=== PATIENT | male | born 1975 | race Caucasian/White ===

== ENCOUNTER 2019-11-01 12:00 | Day surgery (SDC) | payer OTHER ==
[2019-10-31 13:15] VITALS: BMI 27.3
[2019-11-01] MEDS ORDERED: DEXAMETHASONE SOD PHOSPHATE/PF 10 MG/ML SDV ONE ×2 (12:58→16:28)
[2019-11-01] MEDS ORDERED: LIDOCAINE HCL 1%, 10 MG/ML (20ML VIAL) INF ONE (16:45)
[2019-11-01] MEDS ORDERED: DEXAMETHASONE SOD PHOSPHATE 4 MG/1 ML VIAL IVPUSH ONE ×2 (16:46)
[2019-11-01] MEDS ORDERED: IOHEXOL 180 MG/1 ML ML IJ ONE (16:46)
[2019-11-01 17:23] VITALS: TEMP 98.3
[2019-11-01 19:00] VITALS: BP 117/76; PULSE 68
== END 2019-11-01 17:50 | disposition home or self-care (01) ==
LOC: JASU-SURG 12:00
PROVIDERS: ATTEND Pain Medicine Pain Medicine
PROC: B01BYZZ Fluoroscopy of Spinal Cord using Other Contrast (ICD-10-PCS; 2019-11-01)
PROC: 3E0R33Z Introduction of Anti-inflammatory into Spinal Canal, Percutaneous Approach (ICD-10-PCS; principal; 2019-11-01 14:00)
DX: M54.12 Radiculopathy, cervical region (principal); M54.2 Cervicalgia